=== PATIENT | male | born 1990 | race American Indian/Alaskan Native ===

== ENCOUNTER 2022-06-10 00:26 | Emergency (ER) | payer OTHER ==
[2022-06-10 04:16] LABS: Mucus,Urine FEW /HPF; WBC,Urine < 1.0 /HPF (0.0-6.0)
[2022-06-10 04:20] LABS: Color,Urine Yellow (Yellow)
--- NOTE | 2022-06-10 04:54 | XRay Report ---
ABDOMEN 2 VIEWS INDICATION / CLINICAL INFORMATION: Abdominal Pain. COMPARISON: None available. FINDINGS: TUBES / LINES: None. BOWEL GAS PATTERN: No significant abnormality. FREE AIR / EXTRALUMINAL GAS: None seen. ADDITIONAL FINDINGS: No significant additional findings. CHEST: Visualized chest shows no significant abnormality. IMPRESSION: 1. No significant abnormality. Signer Name: Ramses Nelson II, MD Signed: 06/10/2022 4:50 AM Workstation Name: [id number]
[2022-06-10 05:01] LABS: Basophils # (Auto) 0.1 K/mm3 (0.0-0.1); Eosinophils # (Auto) 0.2 K/mm3 (0.0-0.4); Eosinophils % (Auto) 1.8 % (0.0-4.3); Hematocrit 43.9 % (35.5-45.6); Hemoglobin 14.4 gm/dl (11.8-15.2); Lymphocytes # (Auto) 2.7 K/mm3 (1.2-5.4); Mean Corpuscular HGB Conc 33 % (32-34); Mean Corpuscular Volume 80 fl (84-94); Monocytes # (Auto) 0.6 K/mm3 (0.0-0.8); Monocytes % (Auto) 7.1 % (0.0-7.3); Platelet Count 212 K/mm3 (140-440); Red Blood Count 5.48 M/mm3 (3.65-5.03); Red Cell Distribution Width 14.9 % (13.2-15.2)
[2022-06-10] MEDS ORDERED: oxyCODONE /ACETAMINOPHEN 5-325MG TAB PO ONE (08:34)
[2022-06-10] MEDS ORDERED: KETOROLAC 10 MG TAB PO ONE (08:34)
[2022-06-10] MEDS ORDERED: ONDANSETRON 4 MG ODT TAB PO ONE (08:34)
--- NOTE | 2022-06-10 09:22 | Cat Scan Report ---
CT ABDOMEN AND PELVIS WITHOUT CONTRAST INDICATION / CLINICAL INFORMATION: right flank pain. TECHNIQUE: Axial CT images were obtained through the abdomen and pelvis without IV contrast. All CT scans at [facility] location are performed using CT dose reduction for ALARA by means of automated exposure control. COMPARISON: None available. FINDINGS: LOWER CHEST: Patchy pleural-parenchymal densities within the right lower lung, nonspecific.. LIVER: There is a somewhat low density mass identified within the posterior hepatic dome measuring 5. 2 cm in diameter. A similar-appearing lesion measuring 1.9 cm is identified just inferiorly.. GALLBLADDER: No significant abnormality. BILE DUCTS: No significant abnormality. PANCREAS: No significant abnormality. SPLEEN: No significant abnormality. ADRENALS: No significant abnormality. RIGHT KIDNEY and URETER: No significant abnormality. LEFT KIDNEY and URETER: No significant abnormality. STOMACH and SMALL BOWEL: No significant abnormality. COLON: No significant abnormality. APPENDIX: No significant abnormality. PERITONEUM: No free fluid. No free air. No fluid collection. LYMPH NODES: Several borderline enlarged mesenteric nodes are identified within the right mesenteric largest of which measures about 8 mm in diameter.. AORTA and ARTERIES: No significant abnormality. IVC and VEINS: No significant abnormality. URINARY BLADDER: No significant abnormality. REPRODUCTIVE ORGANS: No significant abnormality. ADDITIONAL FINDINGS: None. SKELETAL SYSTEM: No significant abnormality. IMPRESSION: 1. Multiple hepatic lesions, ultimately indeterminate. The largest lesion measuring 5.2 cm in diamete r within the posterior hepatic dome. Recommend three-phase hepatic protocol CT of the abdomen for fur ther evaluation and characterization. 2. Nonspecific borderline enlarged mesenteric nodes, as above. 3. Mild reactive appearing bilateral inguinal adenopathy. Signer Name: Ridge Crespo MD Signed: 06/10/2022 9:18 AM Workstation Name: [id number]
--- NOTE | 2022-06-10 09:36 | Emergency Department Report ---
ED Abdominal Pain HPI - General Chief Complaint: Abdominal Pain Stated Complaint: RT SIDE PAIN Time Seen by Provider: 06/10/22 08:14 Source: patient Mode of arrival: Ambulatory Limitations: No Limitations - History of Present Illness Initial Comments: 31-year-old black male with a past medical history of hypertension presents to the emergency department for evaluation of 5-day history of worsening right flank and abdominal pain. He states that pain started out only in his right flank area but now radiates to his entire right side of his stomach. He denies fever, dysuria, hematuria, nausea, vomiting, and penile discharge. He states that pain is intermittent and 8 out of 10 at its worst. MD Complaint: abdominal pain, flank pain -: Gradual, days(s) (5) Location: RUQ, RLQ, R flank Radiation: none Migration to: no migration Severity scale (0 -10): 8 Quality: cramping, aching Consistency: intermittent Associated Symptoms: denies: nausea, vomiting, diarrhea, fever, chills, dysuria, hematemesis, hematochezia, melena, hematuria, anorexia, syncope - Related Data Allergies Allergy/AdvReac Type Severity Reaction Status Date / Time No Known Allergies Allergy Unverified 06/10/22 03:50 ED Review of Systems ROS: Stated complaint: RT SIDE PAIN Other details as noted in HPI Comment: All other systems reviewed and negative Constitutional: denies: chills, fever, weakness ENT: denies: congestion Respiratory: denies: shortness of breath, SOB with exertion, SOB at rest Cardiovascular: denies: chest pain, palpitations Gastrointestinal: abdominal pain. denies: nausea, vomiting, diarrhea, hematemesis, melena, hematochezia Genitourinary: denies: urgency, dysuria Musculoskeletal: back pain (Right flank) Skin: denies: rash, lesions Neurological: denies: headache, weakness Psychiatric: denies: anxiety, depression ED Past Medical Hx - Social History Smoking Status: Current Every Day Smoker Substance Use Type: Alcohol ED Physical Exam - General Limitations: No Limitations General appearance: alert, in no apparent distress - Head Head exam: Present: atraumatic, normocephalic - Eye Eye exam: Present: normal appearance. Absent: conjunctival injection, periorbital swelling, periorbital tenderness - ENT ENT exam: Present: normal exam - Neck Neck exam: Present: normal inspection, full ROM. Absent: tenderness, lymphade nopathy - Respiratory Respiratory exam: Present: normal lung sounds bilaterally. Absent: respiratory distress, wheezes, rales, rhonchi, stridor, chest wall tenderness - Cardiovascular Cardiovascular Exam: Present: regular rate, normal heart sounds - GI/Abdominal GI/Abdominal exam: Present: soft, normal bowel sounds. Absent: distended, tenderness, guarding, rebound, rigid - Extremities Exam Extremities exam: Present: normal inspection, full ROM, normal capillary refill. Absent: tenderness, pedal edema, joint swelling, calf tenderness - Back Exam Back exam: Present: normal inspection. Absent: CVA tenderness (R), CVA tenderness (L) - Neurological Exam Neurological exam: Present: alert, oriented X3, CN II-XII intact, normal gait, reflexes normal. Absent: motor sensory deficit - Psychiatric Psychiatric exam: Present: normal affect, normal mood - Skin Skin exam: Present: warm, dry, intact, normal color ED Course Vital Signs 06/10/22 06/10/22 03:47 10:50 Temperature 97.8 F 97.8 F Pulse Rate 74 72 Respiratory 20 16 Rate Blood Pressure 132/88 Blood Pressure 138/62 [Right] O2 Sat by Pulse 95 100 Oximetry ED Medical Decision Making - Lab Data Result diagrams: 06/10/22 04:33 - Radiology Data Radiology results: report reviewed, image reviewed CT abdomen pelvis without contrast: FINDINGS: LOWER CHEST: Patchy pleural-parenchymal densities within the right lower lung, nonspecific.. LIVER: There is a somewhat low density mass identified within the posterior h epatic dome measuring 5.2 cm in diameter. A similar-appearing lesion measuring 1.9 cm is identified just inferiorly.. GALLBLADDER: No significant abnormality. BILE DUCTS: No significant abnormality. PANCREAS: No significant abnormality. SPLEEN: No significant abnormality. ADRENALS: No significant abnormality. RIGHT KIDNEY and URETER: No significant abnormality. LEFT KIDNEY and URETER: No significant abnormality. STOMACH and SMALL BOWEL: No significant abnormality. COLON: No significant abnormality. APPENDIX: No significant abnormality. PERITONEUM: No free fluid. No free air. No fluid collection. LYMPH NODES: Several borderline enlarged mesenteric nodes are identified within the right mesenteric largest of which measures about 8 mm in diameter.. AORTA and ARTERIES: No significant abnormality. IVC and VEINS: No significant abnormality. URINARY BLADDER: No significant abnormality. REPRODUCTIVE ORGANS: No significant abnormality. ADDITIONAL FINDINGS: None. SKELETAL SYSTEM: No significant abnormality. IMPRESSION: 1. Multiple hepatic lesions, ultimately indeterminate. The largest lesion measuring 5.2 cm in diameter within the posterior hepatic dome. Recommend three-phase hepatic protocol CT of the abdomen for further evaluation and characterization. 2. Nonspecific borderline enlarged mesenteric nodes, as above. 3. Mild reactive appearing bilateral inguinal adenopathy. KUB: FINDINGS: TUBES / LINES: None. BOWEL GAS PATTERN: No significant abnormality. FREE AIR / EXTRALUMINAL GAS: None seen. ADDITIONAL FINDINGS: No significant additional findings. CHEST: Visualized chest shows no significant abnormality. IMPRESSION: 1. No significant abnormality. - Medical Decision Making 31-year-old black male with a past medical history of hypertension presents to the emergency department for evaluation of 5-day history of worsening right flank and abdominal pain. He states that pain started out only in his right f lank area but now radiates to his entire right side of his stomach. He denies fever, dysuria, hematuria, nausea, vomiting, and penile discharge. He states that pain is intermittent and 8 out of 10 at its worst. Physical exam unremarkable. Patient noted to have multiple liver lesions. Patient advised to follow-up with gastroenterology or general surgery as soon as possible for further evaluation, management, and possible liver biopsy. He is advised to return to the emergency department for any concerning symptoms. He verbalizes understanding of and agreement with plan of care. Critical care attestation.: If time is entered above; I have spent that time in minutes in the direct care of this critically ill patient, excluding procedure time. ED Disposition Clinical Impression: Hepatic lesion, Mesenteric lymphadenopathy Disposition: 01 HOME / SELF CARE / HOMELESS Is pt being admited?: No Does the pt Need Aspirin: No Condition: Stable Instructions: Lymphadenopathy Additional Instructions: Follow up with stomach doctor or general surgeon for further evaluation and management of liver masses. Return to ED as needed. Referrals: FILI SMITH MD [Staff Physician] - 3-5 Days FARZANA MANTILLA MD [Staff Physician] - 3-5 Days EV ARTEAGA DO [Staff Physician] - 3-5 Days Forms: Work/School Release Form(ED) Time of Disposition: 09:35
[2022-06-10 10:54] VITALS: BP 138/62
== END 2022-06-10 10:50 | disposition home or self-care (01) ==
LOC: ED 00:26
DX: K76.89 Other specified diseases of liver (principal); I88.0 Nonspecific mesenteric lymphadenitis; F17.200 Nicotine dependence, unspecified, uncomplicated; Z72.89 Other problems related to lifestyle; Z79.899 Other long term (current) drug therapy
CPT/HCPCS: 36415; 74019; 74176; 81001; 85025; 99284; J3490; Q0162